=== PATIENT | female | born 2005 | race Caucasian/White ===

== ENCOUNTER → 2024-01-23 15:37 | Outpatient (REF) | payer OTHER, SELFPAY | LOC: HWRAD 15:37 | PROVIDERS: ATTENDING PHYSICIAN Chiropractor; FAMILY PHYSICIAN Nurse Practitioner Adult Health | DX: M53.2X7 Spinal instabilities, lumbosacral region (principal); R10.2 Pelvic and perineal pain | CPT/HCPCS: 72110; 72170 ==